=== PATIENT | male | born 1960 | race Caucasian/White ===

== ENCOUNTER 2021-01-04 15:42 | Outpatient (RCR) | payer OTHER, SELFPAY ==
[2021-01-04] MEDS: COVID-19 VACC, MRNA(PFIZER)/PF 30 MCG/0.3 ML SYRINGE IM (08:51)
== END 2021-01-04 23:59 ==
LOC: IMMUN 15:42
PROVIDERS: PCP Family Medicine; Visit Provider Family Medicine
DX: Z23 Encounter for immunization (principal)
CPT/HCPCS: 0001A; 91300

== ENCOUNTER 2024-06-03 08:30 | Outpatient (RCR) | payer OTHER, SELFPAY ==
--- NOTE | 2024-01-19 09:25 | HP.PTEVAL ---
Patient's Visit Information Visit Information Visit Information: NIGHAT SANTOS is a 63 year old M referred to Physical Therapy by Dr. Manuel Bee MD with a diagnosis of R rotator cuff and labral repair 01/05/24. Date of Evaluation: 01/19/24 Physical Therapist: Leo Louis, PT, ATC Visit Plan Frequency: 2-3x /Week Duration: 2-4 Months Plan: R shoulder PROM and mobs x 6 weeks. Progress to AROM after 6 weeks. Begin strengthening at 10-12 weeks consisting of rot cuff strengthening, scap stab ex's, UBE, and HEP Subjective Subjective: DOS: 01/05/24. Pt reports he was attempting to get into his truck when he slipped on ice and fell to the ground, landing on his L side. Pt reports he was holding on to his door with his R shoulder, which resulted in a tear of his rotator cuff, labrum, and biceps tendon. Pt reports he feels a lot better since having the surgery, but is still in a lot of pain today. Pt describes his pain of more like an ache at this time. Pt is R hand dominant. Pt reports he is sleeping okay at this time, but requires pain meds to sleep. Pt reports he has remained braced at most times since his surgery secondary to being in pain. Pt reports he has no HEP at this time. Pt works for a [employer], which requires some heavy lifting at times when he has to lift 40# bags. 3/10 pain while sitting here at rest, 7/10 at worst Pain R shoulder: Pain Intensity (Out of 10): 3 Pain Intensity Range: 7 Objective Objective: Neuro: B UE sensation is WNL to light touch. L biceps reflex= 1/3 ROM: L shoulder AROM flex= 130, abd= 120, ER= 40, IR= WNL; R shoulder PROM flex= 90, abd= 90 degrees MMT: L shoulder flex= 18, abd= 28, ER= 23, IR= 28 #F; R shoulder not tested at this time Observation: Incisions are still healing. No signs of infection. Balance/Special Test Scores Quick DASH Score: 81.8175 Goals Goal 1:: Decrease R shoulder pain x 50% to aid with sleep Goal Time Frame: 6-8 Weeks Goal 2:: Increase R shoulder flex and abd ROM x 30 degrees to aid with overhead activity Goal Time Frame: 6-8 Weeks Goal 3:: Increase R shoulder strength to within 90 percent of L shoulder strength to aid with RTW Goal Time Frame: 8-12 Weeks Goal 4:: I with HEP Goal Time Frame: 4-6 Weeks Rehabilitation Potential Physical Therapy Diagnosis: Pt has R shoulder pain, weakness, and limited ROM secondary to R shoulder surgery Rehabilitation Potential: Good Anticipated Interventions Patient/Client Instruction: Educate patient on: Condition and Plan of Care For the Purpose of:: To improve self management Therapeutic Exercise to Include: Strength training, Flexibilty training, Active ROM and Scapular Strength/Stabilization For the Purpose of:: To decrease pain, To increase ROM and To improve muscle performance and motor function Cryotherapy (ice pack, ice massage): Yes For the Purpose of:: To decrease pain Text: Thank you for the opportunity to evaluate your patient. For Medicare and Medicare HMO plans, please review the plan of care and approve it. It will need to be FAXED BACK to us at [phone] for Medicare purposes. For Medicare only, by signing this I certify the plan of care. Please let me know if there are questions or concerns regarding this plan of care. Physician Signature: Date:
--- NOTE | 2024-04-20 14:25 | HP.PTREVAL_ITS ---
Re-Evaluation Intro: Dr. Manuel Bee MD, It has been my pleasure to treat NIGHAT SANTOS over the last 30 visits for R rotator cuff and labral repair 01/05/24. Please see the progress note below for an update on the physical therapy plan of care! Subjective Subjective: Pt is 15 weeks post op. He has another C-9. He is feeling pretty good. At times it will be randomly sore and not done anything to it. He does sleep on the R side and it does wake him up. He is R handed. Strengthening is going well. He is back to work but he is on light duty. He has to be able to carry 50# to get back to work. Not fully cleared until Jul 07. Objective Objective/Function: R Flexion 125 degrees R ABD 127 R ER 49 Pt is very tight at end range motions, He likes to keep his elbow bent with overhead activities so we worked with a wand today to keep his elbows straight and feel the end range motion stretch in all planes Plan Plan Plan: 2X/ week for 6 additional weeks for AROM/AAROM/PROM to end range to increase end range motion and R scapular and RC strengthening Balance/Gait/Functional tests Balance/Special Test Scores Quick DASH Score: 37.5000 Goals Goals Goal 1:: Decrease R shoulder pain x 50% to aid with sleep Goal Time Frame: 6-8 Weeks Goal Progress: Progressing Goal 2:: Increase R shoulder flex and abd ROM x 30 degrees to aid with overhead activity Goal Time Frame: 6-8 Weeks Goal 3:: Increase R shoulder strength to within 90 percent of L shoulder stre ngth to aid with RTW Goal Time Frame: 8-12 Weeks Goal Progress: Progressing Goal 4:: I with HEP Goal Time Frame: 4-6 Weeks Goal Progress: Progressing Anticipated Interventions Anticipated Interventions Patient/Client Instruction: Educate patient on: Condition and Plan of Care For the Purpose of:: To improve self management Therapeutic Exercise to Include: Strength training, Flexibilty training, Active ROM and Scapular Strength/Stabilization For the Purpose of:: To decrease pain, To increase ROM and To improve muscle performance and motor function Cryotherapy (ice pack, ice massage): Yes For the Purpose of:: To decrease pain Re-Evaluation Ending Re-evaluation ending: Please do not hesitate to contact me at [phone] by phone or if you have questions or concerns regarding this new plan of care! Sincerely, Shellie Dewey, MPT
--- NOTE | 2024-07-12 14:59 | HP.PT.NRP ---
Patient Information Patient Information: NIGHAT SANTOS was seen in my office for initial evaluation on 01/19/24. The following Plan of Care was established for this patient: POC Established Initial Frequency: 2-3x /Week Initial Duration: 2-4 Months Anticipated Interventions Patient/Client Instruction: Educate patient on: Condition and Plan of Care For the Purpose of:: To improve self management Therapeutic Exercise to Include: Strength training, Flexibilty training, Active ROM and Scapular Strength/Stabilization For the Purpose of:: To decrease pain, To increase ROM and To improve muscle performance and motor function Cryotherapy (ice pack, ice massage): Yes For the Purpose of:: To decrease pain Last Seen Last Seen: This patient was last seen in our office . Pertinent comments regarding their Physical therapy will appear below: Pt was treated for 42 PT visits for R shoulder pain through the date of 06/03/24. Pt has not returned through todays date and is discontinued at this time. At this point I will be discontinuing this patient from physical therapy. I would be happy to see this patient again in the future if found appropriate by the physician. Thank you! Leo Louis, PT, ATC Balance/Gait/Functional tests Balance/Special Test Scores Quick DASH Score: 9.0900
== END 2024-06-03 19:00 | disposition home or self-care (01) ==
LOC: PT 08:30
PROVIDERS: PCP Family Medicine; Referring Provider Orthopaedic Surgery Hand Surgery; Visit Provider Orthopaedic Surgery Hand Surgery
DX: S46.011D Strain of muscle(s) and tendon(s) of the rotator cuff of right shoulder, subsequent encounter (principal); S43.431D Superior glenoid labrum lesion of right shoulder, subsequent encounter
CPT/HCPCS: 97110; 97140; 97161; 97530

== ENCOUNTER 2025-09-12 21:18 | Emergency (ER) | payer OTHER, SELFPAY ==
[2025-09-12 21:21] VITALS: BP 145/86; PULSE 88; RESP 14; TEMP 37; O2SAT 97; BMI 31.1
--- NOTE | 2025-09-12 22:09 | EX.ED.DYSGE1 ---
HPI History of Present Illness Chief Complaint: Rash Narrative Narrative: 65-year-old male presents with his because of increased redness to the right side of his abdomen and fever that he has had for the last few days. He relates history that he was treated for shingles starting Thursday of last week. This was approximately 9 days ago. He states he finished his valacyclovir and prednisone, and the area increased in redness overnight. Today he had a fever of 100.8 degrees after taking ibuprofen. States he feels flushed. He is not diabetic and does not take daily medications. He states that the vesicles had healed up well, but there has been increased redness to his right flank. He had not seen his primary care provider but [facility]. He presents because of the increased redness in his right flank. He denies any nausea or vomiting, no exacerbating or alleviating factors. [facility] Medical History [facility] arthritis De Quervain's disease (radial styloid tenosynovitis) Pain of right thumb Home Medications ?Medication ?Instructions ?Recorded ?Last Taken ?Type amoxicillin 875 mg-potassium 1 tab PO BID #20 tabs 09/12/25 Unknown Rx clavulanate 125 mg tablet Allergy/AdvReac Type Severity Reaction Status Date / Time No Known Allergies Allergy Verified 09/12/25 21:25 Family History Father Diabetes Surgical History History of surgical removal of ganglion cyst History of arthroscopy of right knee Social History Smoking Status: Current every day smoker tobacco type: cigars what type of physical activity do you participate in: other details: hunting, training bird dogs ROS ROS ED ROS Narrative Review of systems is positive for increased redness to right flank. Positive fever. No nausea or vomiting. Feeling flushed. Vesicular rash improved. EXAM Physical Exam Narrative Exam Narrative: Afebrile. Vital signs noted. Nontoxic-appearing. Cardiovascular examination reveals regular rate and rhythm. Lungs are clear to auscultation bilaterally. Abdomen is soft and nontender with positive bowel sounds, no guarding or rebound. There is a large erythematous area on the right flank noted. No fluctuance. No crepitance. Abdomen is otherwise soft. Healing vesicular rash, flat, no purulent drainage. Const Vital Signs: 09/12/25 21:21 09/12/25 22:14 09/12/25 22:16 Temperature 98.6 F 98.3 F Temperature Source Oral Oral Pulse Rate 88 75 Respiratory Rate 14 16 Respiratory Effort Normal Non-Labored Respiratory Pattern Normal Blood Pressure 145/86 H 120/64 Blood Pressure Mean 105 82 Pulse Ox 97 97 Oxygen Delivery Method Room Air Room Air 09/12/25 23:00 Temperature 99.4 F H Temperature Source Oral Pulse Rate 70 Respiratory Rate 16 Respiratory Effort Respiratory Pattern Blood Pressure 105/57 L Blood Pressure Mean 73 Pulse Ox 97 Oxygen Delivery Method Room Air MDM MDM MDM Narrative Medical decision making narrative: The differential diagnosis includes but not limited to worsening shingles versus cellulitis versus necrotizing fasciitis. I do not feel that he has neck Fash. I do not feel that he needs CT imaging of his abdomen. There is no crepitance. I do not feel he has a drainable abscess as well. Currently, he is not meeting any SIRS criteria with a normal pulse of 88 and he is afebrile at 98.6. However, sepsis of workup was pursued with blood cultures, CBC, CMP, and lactic acid. He was bolused normal saline 1 L intravenously IV. I think what has happened is that his open lesions of the skin of shingles has turned into a cellulitic process. I reviewed his laboratory work and he has slight increase of his WBC count of 12.1, hemoglobin 15.0, hematocrit 43.7, platelet count 212. Sodium normal at 135 with potassium 4.0, BUN of 22 and creatinine 1.12. Glucose slightly elevated at 136 with a normal anion gap of 12. Lactic acid is normal at 1.1 so I doubt sepsis. LFTs show AST of 44 with ALT normal at 27 and normal alk phos of 82. His blood cultures are currently pending. Upon repeat examination, he states he is feeling mildly improved from when he first arrived. Although he had slight increase in his temperature to 99.4, he remains afebrile. He was started on Unasyn 3 g IV as a starting dose of antibiotics. In discussion with the patient and his , through shared decision making, he would like to be discharged for outpatient trial of antibiotics. I do find this reasonable as he is currently not meeting SIRS criteria. He was given strict return instructions. RN marked cellulitic area with skin marker pen. I reviewed return instructions with the patient and his . He is declining observation at this time. Disposition is discharged home in stable condition. History & Record Review Discussion w/independent historian: Patient and Family () Additional record(s) reviewed:: Prior ED visit (No prior ED visit) Lab Data Attestation: I reviewed the patient's lab results. Labs: Laboratory Results - last 24 hr 09/12/25 22:15 WBC 12.1 H RBC 4.84 Hgb 15.0 Hct 43.7 MCV 90.3 MCH 31.0 MCHC 34.3 RDW Std Deviation 40.7 RDW Coeff of El 12.5 Plt Count 212 MPV 8.9 Immature Gran % (Auto) 1.600 H Neut % (Auto) 71.0 H Lymph % (Auto) 15.7 L [place] % (Auto) 10.3 H Eos % (Auto) 0.7 Baso % (Auto) 0.7 Absolute Neuts (auto) 8.6 H Absolute Lymphs (auto) 1.90 Nucleated RBC % 0 Sodium 135 Potassium 4.0 Chloride 100 Carbon Dioxide 22.4 Anion Gap 12 BUN 22 H Creatinine 1.12 Estim Creat Clear Calc 77.03 Est GFR (MDRD) Non-Af 74 BUN/Creatinine Ratio 20.0 Glucose 136 H Lactic Acid 1.1 Calcium 8.8 Total Bilirubin 0.49 AST 44 H ALT 27 Alkaline Phosphatase 82 Total Protein 6.8 Albumin 3.8 Globulin 3.0 Albumin/Globulin Ratio 1.2 Discharge Plan Triage Chief Complaint: Rash ED Provider: Vasiliy Luther Dx/Rx/DC Orders Clinical Impression: Cellulitis of right abdominal wall, Shingles Instructions: ED Cellulitis Prescriptions: New amoxicillin-pot clavulanate 875-125 mg tablet 1 tab PO BID Qty: 20 0RF Primary Care Provider: Russell Borges Referrals: Russell Borges MD [Primary Care Provider, Family Practice] - 3-5 Days Activity Restrictions/Additional Instructions: Antibiotics as directed. Return with increased redness, sustained high fever, abdominal pain, new or worsening symptoms. Follow-up with your primary care provider within the next few days for a wound check. Return to the emergency department with rapid increase of redness of your abdominal wall in the next 48 hours. Print Language: Dutch Disposition Disposition: Home, Self Care
[2025-09-12 22:14] VITALS: BP 120/64; PULSE 75; RESP 16; TEMP 36.8; O2SAT 97
[2025-09-12] MEDS: 0.9% Normal Saline (1000mL) 1,000 ML 999 ML IV (22:17)
--- OUTSIDE RECORDS SUMMARY | 2025-09-12 22:25 | XMS RPT_ITS | CCD ---
Author Organization [facility] Inform ion Partnership [facility] Care Team Providers Care Line Maintainer Name Role Phone Cecile Borges Primary Care Provider LYNNE SWAN Referring Unavailable CECILE BORGES [facility] Unavail CARROLL Hoffman Attending Unavailable LYNNE SWAN Admitting Unavailable Cecile Borges MD [facility] Provide r LYNNE SWAN Attending Unavailable [facility] Unavail able LYNNE SWAN Admitting Unavailable LYNNE SWAN Referring Unavailable [facility] Unavail able [facility] Unavail able LYNNE SWAN Referring Unavailable LYNNE SWAN Attending Unavailable PINKY MOCTEZUMA Attending Unava ilable JONY [facility] Unavail AL Rojas MD Attending Unavailable Manuel Bee Referring Unavailable Manuel Bee [facility] Medications Completed/Discontinued Medications Medication Drug Class(es) Dates Sig (Normalized) Sig (Original) 1 ml triamcinolone acetonide 40 mg/ml injection (2 sources) Corticosteroid Start: 02-04-2022 End: 02-05-2022 triamcinolone acetonide (KENALOG-40) injection 40 mg Start: 08-15-2020 End: 08-15-2020 triamcinolone acetonide (MICHAEL ALOG-40) injection 40 mg Problems Problem Classification Problem Date Documented Da te Episodic/Chronic Essential hypertension (2 sources) Essential (primary) hypertension; Translations: [Essential (primary) hypertension] Onset: 11-03-2023 Chronic Joint disorders and dislocations; trauma-related (2 sources) Acute tear of medial meniscus of right knee; Translations: [Other tear of medial meniscus, current injury, right knee, initial encounter] Onset: 09-19-2020 Episodic Other non-traumatic joint disorders (2 sources) Pain in left shoulder; Translations: [Pain in left shoulder] Onset: 11-03-2023 Episodic Other non-traumatic joint disorders (2 sources) Pain in right shoulder; Translations: [Pain in right shoulder] Onset: 11-03-2023 Episodic Sprains and strains (4 sources) Unspecified sprain of right shoulder joint, initial encounter; Translations: [Superior glenoid labrum lesion of right shoulder, initial encounter] Onset: 11-11-2023 Episodic Unclassified (6 sources) Acute tear of medial meniscus of right knee; Translations: [Acute medial meniscus tear of right knee, initial encounter] Onset: 09-19-2020 09-19-2020 Results Test Name Value Interpretation Reference Range Facility Re-Evaluation - PT (1)on Re-Evaluation - PT (1) [facility] [address] [place] [address] [address] [place] [address] / REEVALUATION / MEDICARE RECERTIFICATION PHYSICAL THERAPY MR#: [id number] Acct: [id number] Name: MANUEL SANTOS Rep #: [id number] : 1960 63 From: Shellie Dewey MPT Referring Dr.: Dr. Manuel Bee MD Status:REG R Insurance: [facility] SELF PAY INSURANCE Re-Evaluation Intro: Dr. Manuel Bee MD, It has been my pleasure to treat MANUEL SANTOS over the last 30 visits for R rotator cuff and labral repair 01/05/24. Please see the progress note below for an update on the physical therapy plan of care! Subjective Subjective: Pt is 15 weeks post op. He has another C-9. He is feeling pretty good. At times it will be randomly sore and not done anything to it. He does sleep on the R side and it does wake him up. He is R handed. Strengthening is going well. He is back to work but he is on light duty. He has to be able to carry 50# to get back to work. Not fully cleared until Jul 07. Objective Objective/Function: R Flexion 125 degrees R ABD 127 R ER 49 Pt is very tight at end range motions, He likes to keep his elbow bent with overhead activities so we worked with a wand today to keep his elbows straight and feel the end range motion stretch in all planes Plan Plan Plan: 2X/ week for 6 additional weeks for AROM/AAROM/PROM to end range to increase end range motion and R scapular and RC strengthening Balance/Gait/Functiona l tests Balance/Special Test Scores Quick DASH Score: 37.5000 Goals Goals Goal 1:: Decrease R shoulder pain x 50% to aid with sleep Goal Time Frame: 6-8 Weeks Goal Progress: Progressing Goal 2:: Increase R shoulder flex and abd ROM x 30 degrees to aid with overhead activity Goal Time Frame: 6-8 Weeks Goal 3:: Increase R shoulder strength to within 90 percent of L shoulder strength to aid with RTW Goal Time Frame: 8-12 Weeks Goal Progress: Progressing Goal 4:: I with HEP Goal Time Frame: 4-6 Weeks Goal Progress: Progressing Anticipated Interventions Anticipated Interventions Patient/Client Instruction: Educate patient on: Condition and Plan of Care For the Purpose of:: To improve self management Therapeutic Exercise to Include: Strength training, Flexibilty training, Active ROM and Scapular Strength/Stabilization For the Purpose of:: To decrease pain, To increase ROM and To improve muscle performance and motor function Cryotherapy (ice pack, ice massage): Yes For the Purpose of:: To decrease pain Re-Evaluation Ending Re-evaluation ending: Please do not hesitate to contact me at [phone] by phone or if you have questions or concerns regarding this new plan of care! Sincerely, Shellie Dewey, MPT 04/20/24 [id number] CC: Dr. Cecile Borges MD; Dr. Manuel Bee MD Signed For Medicare only, by signing this I certify the plan of care. Physicians Signature Date Normal [facility] Inital Evaluation (1) - PTon 01-19-2024 Inital Evaluation (1) - PT [facility] [address] [place] [address] / REHABILITATION SERVICES INITIAL EVALUATION MR#: [id number] Acct: [id number] Name: MANUEL SANTOS Rep #: [id number] : 1960 63 From: Leo Louis PT, ATC Referring Dr.: Dr. Manuel Bee MD Status: REG RCR Insurance: [facility] SELF PAY INSURANCE Patient's Visit Information Visit Information Visit Information: MANUEL SANTOS is a 63 year old M referred to Physical Therapy by Dr. Manuel Bee MD with a diagnosis of R rotator cuff and labral repair 01/05/24. Date of Evaluation: 01/19/24 Physical Therapist: Leo Louis, PT, ATC Visit Plan Frequency: 2-3x /Week Duration: 2-4 Months Plan: R shoulder PROM and mobs x 6 weeks. Progress to AROM after 6 weeks. Begin strengthening at 10- 12 weeks consisting of rot cuff strengthening, scap stab ex's, UBE, and HEP Subjective Subjective: DOS: 01/05/24. Pt reports he was attempting to get into his truck when he slipped on ice and fell to the ground, landing on his L side. Pt reports he was holding on to his door with his R shoulder, which resulted in a tear of his rotator cuff, labrum, and biceps tendon. Pt reports he feels a lot better since having the surgery, but is still in a lot of pain today. Pt describes his pain of more like an ache at this time. Pt is R hand dominant. Pt reports he is sleeping okay at this time, but requires pain meds to sleep. Pt reports he has remained braced at most times since his surgery secondary to being in pain. Pt reports he has no HEP at this time. 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 3/10 pain while sitting here at rest, 7/10 at worst Pain R shoulder: Pain Intensity (Out of 10): 3 Pain Intensity Range: 7 Objective Objective: Neuro: B UE sensation is WNL to light touch. L biceps reflex= 1/3 ROM: L shoulder AROM flex= 130, abd= 120, ER= 40, IR= WNL; R shoulder PROM flex= 90, abd= 90 degrees MMT: L shoulder flex= 18, abd= 28, ER= 23, IR= 28 #F; R shoulder not tested at this time Observation: Incisions are still healing. No signs of infection. Balance/Special Test Scores Quick DASH Score: 81.8175 Goals Goal 1:: Decrease R shoulder pain x 50% to aid with sleep Goal Time Frame: 6-8 Weeks Goal 2:: Increase R shoulder flex and abd ROM x 30 degrees to aid with overhead activity Goal Time Frame: 6-8 Weeks Goal 3:: Increase R shoulder strength to within 90 percent of L shoulder strength to aid with RTW Goal Time Frame: 8-12 Weeks Goal 4:: I with HEP Goal Time Frame: 4-6 Weeks Rehabilitation Potential Physical Therapy Diagnosis: Pt has R shoulder pain, weakness, and limited ROM secondary to R shoulder surgery Rehabilitation Potential: Good Anticipated Interventions Patient/Client Instruction: Educate patient on: Condition and Plan of Care For the Purpose of:: To improve self management Therapeutic Exercise to Include: Strength training, Flexibilty training, Active ROM and Scapular Strength/Stabilization For the Purpose of:: To decrease pain, To increase ROM and To improve muscle performance and motor function Cryotherapy (ice pack, ice massage): Yes For the Purpose of:: To decrease pain Text: Thank you for the opportunity to evaluate your patient. For Medicare and Medicare HMO plans, please review the plan of care and approve it. It will need to be FAXED BACK to us at [phone] for Medicare purposes. For Medicare only, by signing this I certify the plan of care. Please let me know if there are questions or concerns regarding this plan of care. Physician Signature: Date:__ 01/19/24 0925 CC: Dr. Abel Borges MD; Dr. Manuel Bee MD [facility] Signed Normal [facility] MRI SHOULDER W/O CONTRAST MAUREEN Vaca 11-11-2023 MRI SHOULDER W/O CONTRAST RIGHT ORIGINAL EXAMINATION: MRI OF THE RIGHT SHOULDER WITHOUT CONTRAST11/11/2023 1:26 pm TECHNIQUE: Multiplanar multisequence MRI of the right shoulder was performed without the administration of intravenous contrast. COMPARISON: None HISTORY: ORDERING SYSTEM PROVIDED HISTORY: Reason for Exam: RIGHT SHOULDER SPRAIN Patient fell while holding onto truck door. The anterior and posterior. FINDINGS: MUSCLES AND TENDONS: There is a full-thickness supraspinatus tendon tear with approximately 2 cm of retraction from its insertion. This is superimposed on a background of tendinopathy. Infraspinatus tendinosis noted.. The teres minor tendon is intact. There is likely a small articular sided tear of the subscapularis tendon on a background of tendinopathy. The tendon of the long head of the biceps is intact and is seated within the bicipital groove distally. There is mild supraspinatus muscle atrophy. No mass is evident at the suprascapular notch, spinoglenoid notch, or the quadrilateral space. OSSEOUS STRUCTURES AND JOINTS: Labrum is degenerated and there is irregular undercutting of the superior labrum which extends into the posterosuperior quadrant. There may be some small paralabral cysts. The glenohumeral ligament complexes appear degenerated. There are moderate degenerative changes of the glenohumeral joint. Advanced degenerative changes of the acromioclavicular joint. No significant acromial downsloping. There is a small glenohumeral joint effusion. No fracture or dislocation is evident. Cystic changes are seen at the greater tubercle of the humerus. Red marrow conversion. No visualized marrow replacing osseous lesions. SOFT TISSUES: There is a small volume of fluid within the subacromial subdeltoid bursa as well as the subcoracoid bursa. Associated soft tissues of the shoulder are grossly unremarkable. IMPRESSION: High-grade and retracted supraspinatus tendon tear. The tear extends into the overlap zone with the infraspinatus tendon. 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 Bursitis with a small glenohumeral joint effusion. I have personally reviewed the images of this examination, agree with resident's findings and interpretation. Interpreted by: Felton Shipman MD Preliminary Report By: Cecile Coe Electronically signed By Felton Shipman MD Dictated Date: 11/11/2023 2:21:05 PM Prelim Date: 11/11/2023 3:02:25 PM Sign Date: 11/11/2023 3:02:25 PM Ordering Provider: AL WOODSON [facility] ([place]) XR CHEST PA/APon 11-03-2023 XR CHEST PA/AP EXAMINATION: XR CHEST PA/AP 11/03/2023 7:17 pm HISTORY: ORDERING SYSTEM PROVIDED HISTORY: FALL PAIN, TECHNOLOGIST PROVIDED HISTORY: Injury/Trauma Reason for exam: fall anterior pain worse around clavicles Cancer History: n Surgery, RadiationHistory: n Encounter Type: Initial Mechanism of injury: fall ORDERING SYSTEM PROVIDED DIAGNOSIS CODES: COMPARISON: None. FINDINGS: Heart size is near the upper limit of normal. Hilar and mediastinal contours are normal. There are no focal pulmonary opacities. There is no pleural effusion or pneumothorax. Multilevel spinal degenerative changes are seen. No fracture is evident. IMPRESSION: No acute findings. Workstation ID: [id number] Dictated by: SERNEITY WELSH on ThuNov 03, 2023 7:28:49 PM EST Transcribed by: SERENITY WELSH on ThuNov 03, 2023 7:28:49 PM EST Finalized by: SERENITY WELSH on ThuNov 03, 2023 7:28:49 PM EST [facility] Comment on above: Order Comment: Injur y/Trauma or Illness?:Injury/Trauma How long have you had these symptoms (acute/chronic)?:Acute Reason for exam?:fall anterior pain worse around clavicles History of cancer?:n Surgeries, chemotherapy, or radiation?:n Type of Exam?:Initial Mechanism of injury?:fall XR SHOULDER LEFT 2+ VIEWS (S TANDARD)on 11-03-2023 XR SHOULDER LEFT 2+ VIEWS (STANDARD) EXAMINATION: THREE VIEWS OF THE RIGHT AND 3 VIEWS OF THE LEFT SHOULDER, 11/03/2023 COMPARISON: None. HISTORY: Injury/Trauma or Illness?:Injury/Trauma How long have you had these symptoms (acute/chronic)?:Acute FALL PAIN Injury/Trauma or Illness?:Injury/Trauma How long have you had these symptoms (acute/chronic)?:Acute Reason for exam?:right shoulder pain limited rom History of cancer?:n M25.512 Pain in joint of left shoulder; FALL PAIN Injury/Trauma or Illness?:Injury/Trauma How long have you had these symptoms (acute/chronic)?:Acute Reason for exam?:left shoulder pain limited rom History of cancer?:n M25.512 Pain in joint of left shoulderFALL PAIN FINDINGS: RIGHT SHOULDER FINDINGS: No acute fracture, subluxation or dislocation identified. Mild osteoarthritic changes of the acromioclavicular joint. LEFT SHOULDER FINDINGS: No acute fracture, subluxation or dislocation identified. Mild osteoarthritic changes of the acromioclavicular joint. IMPRESSION: 1. No acute fracture or osseous abnormality identified as described above. If there is persistent clinical concern for the possibility of a subtle or nondisplaced acute fracture, a repeat radiographic may be helpful in one or two week period of time. 2. Mild osteoarthritic changes of the shoulders bilaterally. GJT/mjr Workstation ID: [id number] Dictated by: ALLYSON ROBERTS on ThuNov 03, 2023 7:52:37 PM EST Transcribed by: JAYDE CORTES on ThuNov 03, 2023 8:00:20 PM EST Finalized by: ALLYSON ROBERTS on ThuNov 03, 2023 9:12:34 PM EST [facility] Comment on above: Order Comment: Injur y/Trauma or Illness?:Injury/Trauma How long have you had these symptoms (acute/chronic)?:Acute Reason for exam?:left shoulder pain limited rom History of cancer?:n Surgeries, chemotherapy, or radiation?:n Type of Exam?:Initial Mechanism of injury?:fall XR SHOULDER RIGHT 2+ VIEWS ( STANDARD)on 11-03-2023 XR SHOULDER RIGHT 2+ VIEWS (STANDARD) EXAMINATION: THREE VIEWS OF THE RIGHT AND 3 VIEWS OF THE LEFT SHOULDER, 11/03/2023 COMPARISON: None. HISTORY: Injury/Trauma or Illness?:Injury/Trauma How long have you had these symptoms (acute/chronic)?:Acute FALL PAIN Injury/Trauma or Illness?:Injury/Trauma How long have you had these symptoms (acute/chronic)?:Acute Reason for exam?:right shoulder pain limited rom History of cancer?:n M25.512 Pain in joint of left shoulder; FALL PAIN Injury/Trauma or Illness?:Injury/Trauma How long have you had these symptoms (acute/chronic)?:Acute Reason for exam?:left shoulder pain limited rom History of cancer?:n M25.512 Pain in joint of left shoulderFALL PAIN FINDINGS: RIGHT SHOULDER FINDINGS: No acute fracture, subluxation or dislocation identified. Mild osteoarthritic changes of the acromioclavicular joint. LEFT SHOULDER FINDINGS: No acute fracture, subluxation or dislocation identified. Mild osteoarthritic changes of the acromioclavicular joint. IMPRESSION: 1. No acute fracture or osseous abnormality identified as described above. If there is persistent clinical concern for the possibility of a subtle or nondisplaced acute fracture, a repeat radiographic may be helpful in one or two week period of time. 2. Mild osteoarthritic changes of the shoulders bilaterally. GJT/mjr Workstation ID: [id number] Dictated by: ALLYSON ROBERTS on ThuNov 03, 2023 7:52:37 PM EST Transcribed by: JAYDE CORTES on ThuNov 03, 2023 8:00:20 PM EST Finalized by: ALLYSON ROBERTS on ThuNov 03, 2023 9:12:34 PM EST Normal [facility] Comment on above: Order Comment: Injur y/Trauma or Illness?:Injury/Trauma How long have you had these symptoms (acute/chronic)?:Acute Reason for exam?:right shoulder pain limited rom History of cancer?:n Surgeries, chemotherapy, or radiation?:n Type of Exam?:Initial Mechanism of injury?:fall LG Jt Injection/Arthrocentes is: R kneeon 02-04-2022 Lynne Swan CNP 02/04/2022 10:06 PM LG Jt Injection/Arthrocentes is: R knee Performed by: Lynne Swan CNP Authorized by: Lynne Swan CNP CPT 82093 - Large Joint Arthrocentesis: Consent given by: Patient Time out: Immediately prior to the procedure a time out was called Physician or proceduralist has discussed critical or nonroutine steps, procedure duration and anticipated blood loss: Yes Supporting Documentation: Indications: Pain, joint swelling and diagnostic evaluation Procedure Details: Location: Knee Site: R knee Prep: patient was prepped and draped in usual sterile fashion Needle size: 22 G Approach: Anterolateral Medications: 40 mg triamcinolone acetonide 40 mg/mL Anesthetic used: Lidocaine 1% Anesthetic amount (mL): 2 Patient tolerance: Patient tolerated the procedure well with no immediate complications [facility] XR KNEE RIGHT 4+ VIEWS (SPEC MATTHEW VIEWS IN COMMENTS)on 02-04-2022 XR KNEE RIGHT 4+ VIEWS (SPECIFY VIEWS IN COMMENTS) EXAMINATION: XR KNEE RIGHT 4+ VIEWS (SPECIFY VIEWS IN COMMENTS) 02/04/2022 8:03 am HISTORY: ORDERING SYSTEM PROVIDED HISTORY: Pain, TECHNOLOGIST PROVIDED HISTORY: Illness/Other Reason for exam: right knee pain Cancer History: u Surgery, RadiationHistory: u Encounter Type: Initial Additional signs and symptoms: no ORDERING SYSTEM PROVIDED DIAGNOSIS CODES: R52 Pain COMPARISON: 08/15/2020 IMPRESSION: FINDINGS/ Mild medial compartment joint space narrowing. Small tricompartmental, notch, and tibial spine osteophytes. No joint effusion. Workstation ID: [id number] Dictated by: DAKSHA RAMSEY on ThuFeb 05, 2022 8:17:04 AM EDT Transcribed by: DAKSHA RAMSEY on ThuFeb 05, 2022 8:17:04 AM EDT Finalized by: DAKSHA RAMSEY on ThuFeb 05, 2022 8:17:04 AM EDT Normal [facility] Comment on above: Order Comment: Injur y/Trauma or Illness?:Illness/Other How long have you had these symptoms (acute/chronic)?:Chronic Reason for exam?:right knee pain History of cancer?:u Surgeries, chemotherapy, or radiation?:u Type of Exam?:Initial Additional signs and symptoms?:no MR COMPARISON IMPORTon 08-29 This order has been auto-finalized and does not contain a result. [facility] BN MRI KNEE W/O CONTRASTon 1 10-27-2019 MRI KNEE W/O CONTRAST Patient Name: SANTOS MANUEL STUDY: MRI KNEE W/O CONTRAST; 08/27/2020 3:43 pm INDICATION: TEAR OF MEDIAL MENSICUS CURRENT INJ RIGHT KNEE INT. Right knee pain after hyperextension injury. COMPARISON: None. ACCESSION NUMBER(S): [id number] ORDERING CLINICIAN: LYNNE SWNA TECHNIQUE: Multiplanar and multisequential MR images of the right knee are performed. FINDINGS: There is a moderate to large sized joint effusion. There is ill-defined fluid and edema in Hoffa's fat along its posterior margin. There is a moderate size septated Moreno's cysts. There is some ill-defined fluid extending inferior from the cyst along the superficial margin of the medial gastrocnemius. There is a multilobular and septated collection along the posterior joint capsule at the midline which measures 3.6 cm in craniocaudal diameter and 2.6 x 2.0 cm in transverse and AP diameter. 2 irregular low signal foci are identified internally, each of which measures 15 mm in maximum diameter. These findings are compatible with loose bodies. There is subcortical degenerative signal and cystic changes at the medial tibial epiphysis which is more pronounced posteriorly towards the midline and anteriorly at the peripheral epiphysis. The anterolateral signal changes may be posttraumatic. There is no articular collapse. Minor subcortical degenerative signal is identified within the lateral medial femoral condyles and patella. There are findings of tricompartmental osteoarthritis with diffuse irregular thinning of the articular cartilage which is more pronounced at the upper pole of the patella. There is some amorphous intermediate signal in the lateral meniscus, though no linear meniscal tear or truncation. The medial meniscus is abnormal. There is complex linear signal in the posterior horn which extends to the inferior articular surface. There is amorphous signal and truncation of the anterior free edge. These findings extend into the body of the medial meniscus and also contacts the inferior articular surface. There is minor truncation of the free edge of the anterior body. The anterior horn is intact. There is ill-defined fluid and edema superficial to the medial collateral ligament above and below the joint line. There is no ligament discontinuity or laxity. The anterior and posterior cruciate ligaments, lateral collateral ligament complex, popliteus tendon, extensor complex, and lateral patellar retinaculum are intact. There is mild laxity of the medial patellar retinacula with some attenuation of the medial patellofemoral ligament peripherally. There is no full-thickness discontinuity. IMPRESSION: Tricompartmental osteoarthritis. There is full-thickness loss of the articular cartilage at the upper pole of the patella. Complex linear tearing of the posterior horn and body of the medial meniscus to the inferior articular surface and truncation at the free edge, as detailed above. Grade 1 sprain of the medial collateral ligament. There is grade 1-2 sprain of the medial patellar retinaculum. Subcortical degenerative signal cystic changes in the medial tibial epiphysis. Subcortical edema at the anteromedial tibia could be posttraumatic. There is no articular collapse. Large joint effusion. There is a multi lobular and septated Moreno's cyst. A 3.6 x 2.6 x 2.0 cm multilobular and septated cyst is identified along the posterior joint capsule which contains at least 2 irregular low signal loose bodies. Electronically signed by: CHANO HERNÁNDEZ MD [facility] OR LARGE JOINT ARTHROCEN [facility] 08-15-2020 Lynne Swan CNP 08/15/2020 2:35 PM LG Jt Injection/Arthrocentes is: R knee Performed by: Lynne Swan CNP Authorized by: Lynne Swan CNP CPT 15446 - Large Joint Arthrocentesis: Consent given by: Patient Time out: Immediately prior to the procedure a time out was called Physician or proceduralist has discussed critical or nonroutine steps, procedure duration and anticipated blood loss: Yes Supporting Documentation: Indications: Pain, joint swelling and diagnostic evaluation Procedure Details: Location: Knee Site: R knee Prep: patient was prepped and draped in usual sterile fashion Needle size: 22 G Approach: Anterolateral Medications: 40 mg triamcinolone acetonide 40 mg/mL Anesthetic used: Lidocaine 1% Anesthetic amount (mL): 2 Patient tolerance: Patient tolerated the procedure well with no immediate complications [facility] PROGRESSon 11-28-2019 PROGRESS HNO ID: [id number] Author: Olivia Ernst Service: ? Author Type: Car Wash Manager Type: Progress Notes Filed: 11/28/2019 10:28 AM Note Text: [facility] RECRUITER ACCOUNT MANAGER QUICKNOTE Provider Action/FYI: I called the number listed and they said there's no manuel here. Mailed letter to patient. Patient identified by name and . Olivia Ernst CMA [facility] PROGRESSon 11-21-2019 PROGRESS HNO ID: [id number] Author: Olivia Ernst Service: ? Author Type: Car Wash Manager Type: Progress Notes Filed: 11/28/2019 10:28 AM Note Text: POPULATION HEALTH RECRUITER ACCOUNT MANAGER QUICKNOTE Provider Action/FYI: 1st attempt - Left message for patient to return call #[phone] Patient identified by name and . Olivai Klever GEORGES [facility] CNPTOUTREACHon 11-16-2019 CNPTOUTREACH Patient Outreach (INTMWS) MANUEL SANTOS ([id number]) 1960 M Date Time Provider Department 11/16/19 OLIVIA ERNST ([facility]) DINAMWS During your visit today, we recorded the following information about you: Olivia Ernst CMA 11/28/2019 10:28 AM Signed PHMA TEAMLET DOCUMENTATION Provider Action/FYI: PSR Action/FYI: Last patient activity 01/13/2018 Last PCP visit none in epic. - verify pcp I will call patient to verify PCP/schedule re-establish care appointment (if patient agreeable). Health Maintenance Due: LIPID SCREEN due on 1997 HEPATITIS C SCREENING due on 2006 DIABETES SCREEN due on 2007 COLORECTAL CANCER SCREENING,SEE MODIFIER due on 2012 SHINGRIX VACCINE(1 of 2) due on 2012 PROSTATE CANCER SCREENING DISCUSSION due on 2017 INFLUENZA(1) due on 06/19/2019 Teamlet has identified patient by name and date of . Team: Dr. Tr Alcantara older Alice Baker ? Last Office Visit:Visit date not found ? Next Office Visit: Visit date not found ? Last BP/Labs: Blood Pressure: Last 3 Encounter BP Readings: Date: BP: 04/22/2017 138/88 08/06/2015 142/92 Lipids: No results found for: CHOL No results found for: HDL No results found for: LDL No results found for: TG HGB A1C: No results found for: HBA1C TSH: No results found for: TSH) Care Gap: not seen 3 + years Plan: ? Confirm PCP / Status - unknown ? Type of appointment needed: verify pcp.re-establish care ? Consultation Appointments: n/a Labs, HM and Immunization: Health Maintenance Due: LIPID SCREEN due on 1997 HEPATITIS C SCREENING due on 2006 DIABETES SCREEN due on 2007 COLORECTAL CANCER SCREENING,SEE MODIFIER due on 2012 SHINGRIX VACCINE(1 of 2) due on 2012 PROSTATE CANCER SCREENING DISCUSSION due on 2017 INFLUENZA(1) due on 06/19/2019 GEORGES Juarez CMA 11/28/2019 10:[address] [facility] RECRUITER ACCOUNT MANAGER QUICKNOTE Provider Action/FYI: 1st attempt - Left message for patient to return call #[phone] Patient identified by name and . GEORGES Juarez CMA 11/28/2019 10:[address] [facility] RECRUITER ACCOUNT MANAGER AISHA Provider Action/FYI: I called the number listed and they said there's no manuel here. Mailed letter to patient. Patient identified by name and . Olivia Ernst CMA Allergies As of Date: 11/16/2019 (No Known Allergies) Date Reviewed: 04/22/2017 Reviewed by: Chelsey VincentLinux Devops EngineerRandal Perez - Fully Assessed Reason for Visit: PHMA/Care Gap Outreach [[id number]] Prescriptions as of 11/16/2019 Sig: PROMETHAZINE-DM 6.25 MG-15 MG* Take 5 mL by mouth four times* Problem List As Of Date: 11/16/2019 (None) Letter Text Encounter Status:Closed by OLIVIA ERNST CMA on 11/28/19 [facility] PROGRESSon 11-16-2019 PROGRESS HNO ID: [id number] Author: Olivia Ernst Service: ? Author Type: Car Wash Manager Type: Progress Notes Filed: 11/28/2019 10:28 AM Note Text: PHMA TEAMLET DOCUMENTATION Provider Action/FYI: PSR Action/FYI: Last patient activity 01/13/2018 Last PCP visit none in [place]. - verify pcp I will call patient to verify PCP/schedule re-establish care appointment (if patient agreeable). Health Maintenance Due: LIPID SCREEN due on 1997 HEPATITIS C SCREENING due on 2006 DIABETES SCREEN due on 2007 COLORECTAL CANCER SCREENING,SEE MODIFIER due on 2012 SHINGRIX VACCINE(1 of 2) due on 2012 PROSTATE CANCER SCREENING DISCUSSION due on 2017 INFLUENZA(1) due on 06/19/2019 Teamlet has identified patient by name and date of . Team: Dr. Tr Alcantara older Alice Baker ? Last Office Visit:Visit date not found ? Next Office Visit: Visit date not found ? Last BP/Labs: Blood Pressure: Last 3 Encounter BP Readings: Date: BP: 04/22/2017 138/88 08/06/2015 142/92 Lipids: No results found for: CHOL No results found for: HDL No results found for: LDL No results found for: TG HGB A1C: No results found for: HBA1C TSH: No results found for: TSH) Care Gap: not seen 3 + years Plan: ? Confirm PCP / Status - unknown ? Type of appointment needed: verify pcp.re-establish care ? Consultation Appointments: n/a Labs, HM and Immunization: Health Maintenance Due: LIPID SCREEN due on 1997 HEPATITIS C SCREENING due on 2006 DIABETES SCREEN due on 2007 COLORECTAL CANCER SCREENING,SEE MODIFIER due on 2012 SHINGRIX VACCINE(1 of 2) due on 2012 PROSTATE CANCER SCREENING DISCUSSION due on 2017 INFLUENZA(1) due on 06/19/2019 Olivia Ernst, COVERAGE ANALYST [facility] Vital Signs Date Time Vital Sign Value Performing Clinician Jazmin gonzales 02-04-2022 08:57-0400 Body height 170.2 cm Lynne Swan CNP Work Phone: [facility] 02-04-2022 08:57-0400 Body mass index (BMI) [Ratio] 32.45 kg/m2 Lynne Swan CNP Work Phone: [facility] 02-04-2022 08:57-0400 Body weight 93.98 kg Lynne Swan [employer] Work Phone: [facility] 08-15-2020 08:18-0400 BMI (Body Mass Index) 28.8 kg/m2 Lynne [facility] 08-15-2020 08:18040 [facility] 08:180400 Height 175.3 cm Lynne Carrioncock [facility] Encounters Encounter Date Encounter Type Care Provider Facility Start: 06-03-2024 End: 06-03-2024 ambulatory Manuel Bee Facility:[facility] Start: 11-11-2023 End: 11-12-2023 ambulatory AL WOODSON MD Facility:B Start: 11-11-2023 End: 11-11-2023 Patient encounter procedure AL WOODSON MD [facility] Start: 11-03-2023 End: 11-03-2023 Emergency department patient visit PINKY GOETZ [facility] Start: 02-04-2022 End: 02-08-2022 ambulatory LYNNE STEEL [facility] Start: 02-04-2022 End: 02-04-2022 Patient encounter procedure Lynne Swan [facility] Work Phone: [facility] Comment on above: Acute medial meniscu s tear of right knee, initial encounter (Primary Dx) Start: 01-04-2021 End: 01-04-2021 Discharged Recurring [facility]-Immunizations Start: 12-26-2020 End: 12-26-2020 Orders Only Eva Kate Anglin Work Phone: [facility] Start: 09-19-2020 End: 09-23-2020 Patient encounter procedure LYNNE STEEL [facility] Start: 09-19-2020 End: 09-19-2020 Patient encounter procedure Lynne Swan Work Phone: [facility] Comment on above: Acute medial meniscu s tear of right knee, initial encounter; Acute medial meniscus tear of right knee, subsequent encounter Start: 08-29-2020 End: 08-30-[facility] Start: 08-29-2020 End: 08-29-2020 Subsequent hospital visit by physician Lynne Swan Work Phone: [facility] Comment on above: Arrived Start: 08-29-2020 End: 08-29-2020 Office outpatient visit 10 minutes Lynne Swan Work Phone: [facility] Comment on above: Acute medial meniscu s tear of right knee, initial encounter (Primary Dx) Start: 08-15-2020 End: 08-15-2020 Office outpatient new 45 minutes Lynne Swan Work Phone: [facility] Comment on above: Acute medial meniscu s tear of right knee, initial encounter (Primary Dx) Procedures Date Procedure Procedure Detail Performing Clinician Start: 02-04-2022 Arthrocentesis aspir &/inj major jt/bursa w/o us Lynne Swan CNP Work Phone: Start: 08-29-2020 Magnetic resonance imaging Lynne Swan Work Phone: Start: 08-15-2020 Arthrocentesis Lynne Swan Work Phone: Plan of Treatment Date Care Activity Detail Author Start: 04-22-2027 Tetanus vaccination Tetanus: Every 10yrs [facility] Start: 06-19-2022 Influenza vaccination Sequential Influenza Vaccine (Season Ended) [facility] Start: 01-25-2021 COVID-19 Vaccine (2 - Pfizer 3-dose series) COVID-19 Vaccine (2 - Pfizer 3-dose series) [facility] Start: 10-03-2020 End: 10-03-2020 Treatment 10/03/2020 Treatment Rehabilitation Lynne Swan, [employer] [address] [facility] [place] [address] [phone] Justin Hatch PT [facility] Start: 06-19-2020 Influenza vaccination given Sequential Influenza Vaccine (#1) [facility] Start: 2012 Administration of herpes zoster vaccine Zoster Vaccines (1 of 2) [facility] Start: 2012 Screening for malignant neoplasm of colon [facility] Start: 1980 Hepatitis C antibody, confirmatory test Hepatitis C Screening [facility] Start: 1980 Hepatitis C screening Hepatitis C Screening [facility] Start: 1978 COVID-19 Vaccine (1 of 2) COVID-19 Vaccine (1 of 2) [facility] Start: 1977 HIV screening HIV Screening [facility] Start: 1974 Adolescent depression screening assessment Depression Screening (PHQ9) [facility] Start: 1974 Depression screening using PHQ-9 (Patient Health Questionnaire 9) score Depression Screening (PHQ-2/9) [facility] Start: 1968 Pneumococcal Vaccine: Ped or At-Risk (1 - PCV) Pneumococcal Vaccine: Ped or At-Risk (1 - PCV) [facility] Start: 1965 History and physical examination, annual for health maintenance Wellness Visit [facility] Start: 1962 Prostate specific antigen measurement PSA Level [facility] Start: 1962 Tetanus vaccination Tetanus: Every 10yrs [facility] Immunizations Immunization Date Immunization Notes Care Provider Fa tamia 01-04-2021 Covid (Pfizer) [facility] Work Phone: Payers Date Payer Category Payer Self-pay [id number] 2024 Unknown [id number] 2023 Worker's Compensation [id number] 2019 Unknown [id number] 2000 Unknown [id number] 1960 Unknown [id number] 1960 Unknown [id number] 1960 Unknown [id number] 1960 Unknown [id number] 1960 Unknown [id number] 1960 Unknown [id number] Unknown [employer] [facility] [id number] Effective for all dates [id number] Unknown [facility] [employer] [facility] [id number] Unknown [facility] [employer] CN [id number] Unknown [id number] Unknown [id number] Social History Date Type Detail Facility Start: 08-15-2020 End: 08-30-2020 Tobacco smoking status VAIS Current every day smoker [facility] Start: 08-15-2020 End: 08-30-2020 Tobacco use and exposure Never used [facility] Start: 08-15-2020 End: 08-30-2020 Alcohol intake Ex-drinker (finding) [facility] Start: 1960 Sex Assigned At Not on file [facility] Start: 01-25-2022 End: 02-04-2022 Exposure to SARS-CoV-2 (event) Not sure [facility] Start: 1960 Sex Assigned At Male A [facility] Start: 02-04-2022 Alcohol intake Current drinke r of alcohol (finding) [facility] Start: 08-29-2020 History SDOH Alcohol Frequency 99 [facility] Start: 02-04-2022 History SDOH Alcohol Comment rare [facility] Tobacco smoking status No Smokin g Status Entered [facility] Goals Date Patient Goal Desired Activity /State Clinical Note 11-11-2023 Note Date & Type Note Facility 11-11-2023 Note ORIGINAL EXAMINATION: MRI OF THE RIGHT SHOULDER WITHOUT CONTRAST11/11/2023 1:26 pm TECHNIQUE: Multiplanar multisequence MRI of the right shoulder was performed without the administration of intravenous contrast. COMPARISON: None HISTORY: ORDERING SYSTEM PROVIDED HISTORY: Reason for Exam: RIGHT SHOULDER SPRAIN Patient fell while holding onto truck door. The anterior and posterior. FINDINGS: MUSCLES AND TENDONS: There is a full-thickness supraspinatus tendon tear with approximately 2 cm of retraction from its insertion. This is superimposed on a background of tendinopathy. Infraspinatus tendinosis noted.. The teres minor tendon is intact. There is likely a small articular sided tear of the subscapularis tendon on a background of tendinopathy. The tendon of the long head of the biceps is intact and is seated within the bicipital groove distally. There is mild supraspinatus muscle atrophy. No mass is evident at the suprascapular notch, spinoglenoid notch, or the quadrilateral space. OSSEOUS STRUCTURES AND JOINTS: Labrum is degenerated and there is irregular undercutting of the superior labrum which extends into the posterosuperior quadrant. There may be some small paralabral cysts. The glenohumeral ligament complexes appear degenerated. There are moderate degenerative changes of the glenohumeral joint. Advanced degenerative changes of the acromioclavicular joint. No significant acromial downsloping. There is a small glenohumeral joint effusion. No fracture or dislocation is evident. Cystic changes are seen at the greater tubercle of the humerus. Red marrow conversion. No visualized marrow replacing osseous lesions. SOFT TISSUES: There is a small volume of fluid within the subacromial subdeltoid bursa as well as the subcoracoid bursa. Associated soft tissues of the shoulder are grossly unremarkable. IMPRESSION: High-grade and retracted supraspinatus tendon tear. The tear extends into the overlap zone with the infraspinatus tendon. 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 Bursitis with a small glenohumeral joint effusion. I have personally reviewed the images of this examination, agree with resident's findings and interpretation. Interpreted by: Felton Shipman MD Preliminary Report By: Cecile Coe Electronically signed By Felton Shipman MD Dictated Date: 11/11/2023 2:21:05 PM Prelim Date: 11/11/2023 3:02:25 PM Sign Date: 11/11/2023 3:02:25 PM Ordering Provider: [facility] History of Present illness Narrative 02-04-2022 Lynne Swan CNP - 02/04/2022 10:05 PM EDTCnicola Swan CNP - 02/04/2022 9:00 AM EDT Note Date & Type Note Facility 02-04-2022 History of Presen t illness Narrative Associated Order(s): LG Jt Injection/Arthrocentesis: R knee Post-Procedure Diagnose(s): Acute medial meniscus tear of right knee, initial encounter LG Jt Injection/Arthrocentesis: R knee Performed by: Lynne Swan CNP Authorized by: Lynne Swan CNP CPT 20912 - Large Joint Arthrocentesis: Consent given by: Patient Time out: Immediately prior to the procedure a time out was called Physician or proceduralist has discussed critical or nonroutine steps, procedure duration and anticipated blood loss: Yes Supporting Documentation: Indications: Pain, joint swelling and diagnostic evaluation Procedure Details: Location: Knee Site: R knee Prep: patient was prepped and draped in usual sterile fashion Needle size: 22 G Approach: Anterolateral Medications: 40 mg triamcinolone acetonide 40 mg/mL Anesthetic used: Lidocaine 1% Anesthetic amount (mL): 2 Patient tolerance: Patient tolerated the procedure well with no immediate complications 02/04/22 Manuel Santos 1960 No chief complaint on file. HISTORY of Present Illness: Manuel Santos is a 61 y.o. year old male that presents today with No chief complaint on file. . Manuel Santos has had injections in the past. Last injection to right/left knee was 08/29/2020 and they tolerated well. They have been treated w/ oral medications & injections. Patient denies new injury to the knees. The following portions of the patient's history were reviewed and updated as appropriate: allergies, current medications, past surgical history and problem list Assessment No documentation. PAST MEDICAL HISTORY The patient's Medications, Allergies, Past Surgical History, Medical History, Family History and Social History were reviewed and can be found in their online medical record, and I have reviewed this information with Manuel Santos at the time of their visit. They are significant for No past medical history on file. IMAGING Notes: R Knee: No acute fracture or dislocation. There is tricompartmental joint space narrowing, most significant in the patellofemoral joint space. IMPRESSION And PLAN: Cortisone injection today. Will follow up in 3 months if effective. Call if no improvement in 10 days. No diagnosis found. yLnne Swan CNP documented in this encounter [facility] Evaluation + Plan note Note Date & Type Note Facility Evaluation + Plan note No data available for this section [facility] Evaluation note Note Date & Type Note Facility Evaluation note No Assessments Information Avail [facility] Work Phone: Evaluation note Note Date & Type Note Facility Evaluation note Diagnosis Acute medial meniscus tear of right knee, initial encounter- Primary documented in this encounter [facility] Discharge instructions Note Date & Type Note Facility Hospital Discharge instructions No data available for this section [facility] Progress note Note Date & Type Note Facility Progress note No data available for this section [facility] Summary Purpose Family History No Family History Records FoundNo Family History Records FoundNo Family History Records FoundNo Family History Records FoundNo Family History Records FoundNo Family History Records Found No data available for this section No Family History Records FoundNo Family History Records Found Advance Directives No Advanced Directives Records FoundDocuments on File Type Date Recorded 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 Bag 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 Expl 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 Advance Directives and Living Will Documents on File Type Date Recorded Patient Bag Sealer Expl anation Advance Directives and Living Will Documents on File Type Date Recorded Patient Bag Sealer Expl anation Advance Directives and Livin g Will 09/19/2020 1:54 PM History of Present Illness * Lynne Swan CNP - 08/15/2020 2:32 PM EDT Associated Order(s): LG Jt Injection/Arthrocentesis: R knee Post-Procedure Diagnose(s): Acute medial meniscus tear of right knee, initial encounter LG Jt Injection/Arthrocentesis: R knee Performed by: Lynne Swan CNP Authorized by: Lynne Swan CNP CPT 32004 - Large Joint Arthrocentesis: Consent given by: Patient Time out: Immediately prior to the procedure a time out was called Physician or proceduralist has discussed critical or nonroutine steps, procedure duration and anticipated blood loss: Yes Supporting Documentation: Indications: Pain, joint swelling and diagnostic evaluation Procedure Details: Location: Knee Site: R knee Prep: patient was prepped and draped in usual sterile fashion Needle size: 22 G Approach: Anterolateral Medications: 40 mg triamcinolone acetonide 40 mg/mL Anesthetic used: Lidocaine 1% Anesthetic amount (mL): 2 Patient tolerance: Patient tolerated the procedure well with no immediate complications * Lynne Swan CNP - 08/15/2020 2:24 PM EDT Manuel Santos 1960 CC: 60 y.o. is a he with right knee pain. Chief Complaint Patient presents with Right Knee - Pain . HPI: Knee Pain: Manuel presents to the office today with right knee pain. 3 weeks ago he was bailinghay and slipped, hyperextending his knee and twisting it. He didn't have immediate swelling but he did have pain. Over the course of the next couple of days, the knee seemed to be getting better but then became swollen and painful. He complains of it giving out on him. He has tried Tylenol and Advil but neither of those touched the pain. He is able to go up and down stairs without much difficultyalthough he is very cautious when he has too. He does everything in his power to avoid any twistingmotion of the knee. PMH: No Known Allergies No current outpatient medications on file. No past medical history on file. Past Surgical History: Procedure Laterality Date KNEE SURGERY Right cyst removal Social History Socioeconomic History Marital status: Spouse name: Not on file Number of children: Not on file Years of education: Not on file Highest education level: Not on file Occupational History Not on file Social Needs Financial resource strain: Not on file Food insecurity Worry: Not on file Inability: Not on file Transportation needs Medical: Not on file Non-medical: Not on file Tobacco Use Smoking status: Current Every Day Smoker Smokeless tobacco: Never Used Substance and Sexual Activity Alcohol use: Not Currently Drug use: Not on file Sexual activity: Not on file Lifestyle Physical activity Days per week: Not on file Minutes per session: Not on file Stress: Not on file Relationships Social connections Talks on phone: Not on file Gets together: Not on file Attends denominational service: Not on file Active member of club or organization: Not on file Attends meetings of clubs or organizations: Not on file Relationship status: Not on file Other Topics Concern Not on file Social History Narrative Not on file The patient's past medical history, surgical history, social history, family history, medications and allergies were reviewed with the patient today and are available in the chart for further review. ROS: Review of Systems Constitutional: Negative for activity change and fatigue. HENT: Negative for congestion, hearing loss and trouble swallowing. Eyes: Negative for visual disturbance. Respiratory: Negative for chest tightness and shortness of breath. Cardiovascular: Negative for chest pain and palpitations. Gastrointestinal: Negative for abdominal pain, diarrhea, nausea and vomiting. Endocrine: Negative for polydipsia, polyphagia and polyuria. Genitourinary: Negative for decreased urine volume, difficulty urinating and hematuria. Musculoskeletal: Positive for arthralgias and joint swelling. Negative for myalgias. Skin: Negative for color change, rash and wound. Allergic/Immunologic: Negative for immunocompromised state. Neurological: Negative for dizziness, weakness, light-headedness and numbness. Hematological: Does not bruise/bleed easily. Psychiatric/Behavioral: Negative for confusion and sleep disturbance. The patient is not nervous/anxious. PE: Physical Exam Constitutional: He is oriented to person, place, and time. He appears well- developed and well-nourished. HENT: Head: Normocephalic. Eyes: Pupils are equal, round, and reactive to light. Neck: Normal range of motion. Neck supple. Cardiovascular: Normal rate and regular rhythm. Pulmonary/Chest: Effort normal and breath sounds normal. Abdominal: Soft. Bowel sounds are normal. Musculoskeletal: General: Tenderness and edema present. Right knee: He exhibits decreased range of motion, swelling, effusion and erythema. Tenderness found. Medial joint line and lateral joint line tenderness noted. Neurological: He is alert and oriented to person, place, and time. Skin: Skin is warm and dry. ORTHO: Right Knee Exam Tenderness The patient is experiencing tenderness in the medial joint line, lateral joint line and lateral retinaculum. Range of Motion Extension: abnormal Flexion: abnormal Tests Carolyn: Medial - positive Lateral - positive Valgus: negative Selwyn: Anterior - trace Drawer: Anterior - negative Posterior - negative Other Erythema: absent Scars: present Sensation: normal Pulse: present Swelling: moderate Effusion: effusion present Imaging: R Knee No acute fracture or dislocation. There is mild narrowing in the joint spaces, small effusion. Assessment/Plan: After examination and reviewing of the patient x-ray images, I offered him a cortisone injection which he gladly accepted for pain and inflammation. I did this without complications and he tolerated this well. I am going to order a MRI for further diagnostic evaluation. I placed him in a brace for swelling and additional support. I will see him back for his results. The patient verbalizes understanding and is in agreement with the treatment plan. Diagnosis: Problem List Items Addressed This Visit None Follow Up: No follow-ups on file. Lynne Swan CNP documented in this encounter* Lynne Swan CNP - 08/29/2020 9:46 AM EST [facility] [address] [facility] [address] [facility] [id number] Chief Complaint Patient presents with Results MRI follow up Manuel Santos returns to the office today for follow up of the right knee and for MRI results. The patient states that the swelling has improved since the injection on 08/15. He still has some pain and pressure in the back of his knee but overall it has improved. He denies any new injury to the knee. He has been wearing the brace while working but finds that it will irritate the knee after extended periods of use. The patient's past medical history, surgical history, social history, family history, medications and allergies were reviewed with the patient today and are available in the chart for further review. No Known Allergies No current outpatient medications on file. History reviewed. No pertinent past medical history. Past Surgical History: Procedure Laterality Date KNEE SURGERY Right cyst removal Social History Socioeconomic History Marital status: Spouse name: Not on file Number of children: Not on file Years of education: Not on file Highest education level: Not on file Occupational History Not on file Social Needs Financial resource strain: Not on file Food insecurity Worry: Not on file Inability: Not on file Transportation needs Medical: Not on file Non-medical: Not on file Tobacco Use Smoking status: Current Every Day Smoker Smokeless tobacco: Never Used Substance and Sexual Activity Alcohol use: Not Currently Drug use: Not on file Sexual activity: Not on file Lifestyle Physical activity Days per week: Not on file Minutes per session: Not on file Stress: Not on file Relationships Social connections Talks on phone: Not on file Gets together: Not on file Attends denominational service: Not on file Active member of club or organization: Not on file Attends meetings of clubs or organizations: Not on file Relationship status: Not on file Other Topics Concern Not on file Social History Narrative Not on file ROS: Review of Systems Constitutional: Negative for activity change and fatigue. HENT: Negative for congestion, hearing loss and trouble swallowing. Eyes: Negative for visual disturbance. Respiratory: Negative for chest tightness and shortness of breath. Cardiovascular: Negative for chest pain and palpitations. Gastrointestinal: Negative for abdominal pain, diarrhea, nausea and vomiting. Endocrine: Negative for polydipsia, polyphagia and polyuria. Genitourinary: Negative for decreased urine volume, difficulty urinating and hematuria. Musculoskeletal: Positive for arthralgias. Negative for joint swelling and myalgias. Skin: Negative for color change, rash and wound. Allergic/Immunologic: Negative for immunocompromised state. Neurological: Negative for dizziness, weakness, light-headedness and numbness. Hematological: Does not bruise/bleed easily. Psychiatric/Behavioral: Negative for confusion and sleep disturbance. The patient is not nervous/anxious. PE: Physical Exam Constitutional: He is oriented to person, place, and time. He appears well- developed and well-nourished. HENT: Head: Normocephalic. Eyes: Pupils are equal, round, and reactive to light. Neck: Normal range of motion. Neck supple. Cardiovascular: Normal rate and regular rhythm. Pulmonary/Chest: Effort normal and breath sounds normal. Abdominal: Soft. Bowel sounds are normal. Musculoskeletal: Right knee: He exhibits decreased range of motion and swelling. Tenderness found. Medial joint lineand lateral joint line tenderness noted. Neurological: He is alert and oriented to person, place, and time. Skin: Skin is warm and dry. Imaging: MRI R Knee Tricompartmental arthritis, full thickness loss of the articular cartilage at the upper pole of thepatella. Complex linear tearing of the posterior horn and body of the medial meniscus to the inferior articular surface and truncation at the free edge. Grade 1 MCL sprain Subcortical degenerative signal cystic changes in the medial tibial epiphysis. Large joint effusion, 2 irregular low signal loose bodies. Assessment/Plan: After exam and reviewing of the patient MRI images, I am going to start him in physical therapy. The patient, if no significant improvement after therapy, would like to move forward with a knee scope with menisectomy with Dr. Price. The office will contact him to schedule the surgery. I am happy to see him back as needed. documented in this encounter* Carroll Page, PT - 09/19/2020 1:45 PM EST [facility] Evaluation Today's Date 09/19/2020 Patient Name: Manuel Santos Date of : 1960 Case Name: No linked episodes Functional Diagnosis: 1. Acute medial meniscus tear of right knee, initial encounter Clinical Information: Subjective History of Present Illness Date of Onset: 6 weeks. Chief Complaint/ Mechanism of Injury: Patient reports getting down off of hay bails and hyperextended the knee with pain. Swelling began later that night and last for several days. MRI demonstrates meniscal tear along with MCL Grade 1 tear. Patient reports improved pain and less buckling while wearing hinged knee brace but reports increased stiffness after wearing. Previous Treatment for this condition: Injections Previous Imaging: MRI and X-ray Status: improving Hand dominance: right Pain Scale: Average Pain: 3/10 Pain at highest: 7/10 Functional Status Functional Limitations: limited mobility Premorbid Functional Level: Patient reported Current Functional Level: see outcome tool Daily activity scale: active Prior level of function: active Red Flags: None Barriers to Care: None Fall risk screening Fallen 2 or more times in the last 12 months: No Injured as a result of a fall in the last 12 months: No Personal Goals: Patient seeks to decrease pain and improve ability to complete work tasks without compnesations. Home medical equipment owned: No Knee Right Knee Tenderness: medial joint line Range of Motion: Flexion Right knee active flexion: 3-115 degrees. Muscle Strength: Flexion: 4+ Extension: 4+ Quad Set: good Special Tests Carolyn (Medial): Positive Carolyn (Lateral): Negative Stress Test (Varus): Negative Stress Test (Valgus): Positive Selwyn: Negative Posterior Drawer: Negative Patellar Femoral Grind: Negative Left Knee Left Knee WFL Muscle Strength WFL Treatments: Physical Therapy Exercise Log - 09/19/20 1408 OTHER Precautions/Contraindications Right knee pain Therapeutic Exercise (44445) Intervention Quad sets with bolster 5 secs x 10 reps Parameters Heel Slides 20 x Intervention SLR Flexion 20 x Parameters Sidelying bent knee abduction 20 x Treatment Plan: Frequency of Visits: twice per week Duration: 6 weeks Interventions: Therapeutic Exercise, Neuromuscular Re-Education, Manual Therapy, Gait Training and Vasopneumatic Rehab Potential: good Goals: Physical Therapy Ortho Goals: MOBILITY: Patient will be able to ambulate for 1 hour in community without difficulty in 6 weeks without brace on. MOBILITY: Patient will be able to ambulate on uneven surfaces without difficulty in 6 weeks. MOBILITY: Patient will be able to ascend/descend stairs without difficulty in 6 weeks. MOBILITY: Patient will be able to squat to pick items off floor without pain in 6 weeks. IMPAIRMENT: Improve AROM of Right Knee Extension from -3 degrees to 0 degrees in 2 weeks. OTHER: Patient will be able to properly demonstrate independence with HEP in 2 weeks. Patient Education provided: HEP, POC and prognosis. Clinical Impression: CPT Code 39714 Low 55783 Moderate 05311 High History 0 1-2 3+ Comorbidities: OA, Personal factors: age and chronicity or severity of the current condition x Examination of body systems (elements of body structures & functions, activity limitations, and/or participation restrictions) 1-2 elements 3+ elements 4+ elements See below clinical impression x Clinical Presentation Stable Evolving Unstable As evidenced by reproduction of or changes in symptoms with certain movements x Decision Making Low (FOTO >/= 69) Moderate (FOTO 34 - 68) High (FOTO </= 33) FOTO score= 44 x Pt is a 60 y.o. male who presents to PT services with c/o right knee pain with bending and ambulation. Upon assessment, pt has been found with the following impairments: decreased ROM, decreased strength and antalgic gait. 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 The pt would benefit from skilled PT servicesfocused on the above listed impairments and limitations in order to safely progress pt to their desired level of function. Pt to be discharged from OP PT services if/when goals are met, if they fail to make progress with conservative management in PT, if their level of progress plateaus, or if they do not maintain compliance with attendance or HEP. At this time, it is my clinical judgment that services are medically necessary. Carroll Page, PT [place], [id number] documented in this encounter Assessments Diagnosis Acute medial meniscus tear of right knee, initial encounter- Primary Diagnosis Acute medial meniscus tear of right knee, initial encounter- Primary Diagnosis Acute medial meniscus tear of right knee, initial encounter Acute medial meniscus tear of right knee, subsequent encounter Reason for Referral Status Reason Specialty Diagnoses / Procedures Referred By Contact Referred To Contact Authorized Rehabilitation Diagnoses Acute medial meniscus tear of right knee, initial encounter Lynne Swan, [facility] [address] [place] [address] [facility] [place] [address] [facility] [place] [address] Chief Complaint and Reason for Visit Chief Complaint PFIZER VACCINE Additional Source Comments (unrecognized sect ion and content) No Status Records FoundNo Status Records FoundNo Status Records FoundNo Status Records FoundNo Status Records FoundNo Status Records FoundNo Status Records FoundNo Status Records Found INFORMATION SOURCE (unrecogn ized section and content) DATE CREATED AUTHOR 11/28/2019 [facility] DATE CREATED AUTHOR AUTHOR'S ORGANIZ ATION 09/01/2020 [facility] DATE CREATED AUTHOR AUTHOR'S ORGANIZ ATION 09/23/2020 [facility] DATE CREATED AUTHOR AUTHOR'S ORGANIZ ATION 02/10/2022 [facility] DATE CREATED AUTHOR AUTHOR'S ORGANIZ ATION 03/08/2022 [facility] DATE CREATED AUTHOR AUTHOR'S ORGANIZ ATION 11/09/2023 [facility] DATE CREATED AUTHOR AUTHOR'S ORGANIZ ATION 11/12/2023 [facility] DATE CREATED AUTHOR AUTHOR'S ORGANIZ ATION 07/15/2024 [facility] Reason for Visit (unrecogniz ed section and content) Reason Comments Pain Reason Comments Results MRI follow up Reason Comments Physical Therapy Status Reason Specialty Diagnoses / Procedures Referred By Contact Referred To Contact Authorized Rehabilitation Diagnoses Acute medial meniscus tear of right knee, initial encounter Lynne Swan, [facility] [address] [place] [address] [facility] [place] [address] [facility] [place] [address] Care Teams (unrecognized sec tion and content) Line Maintainer Relationship Specialty Start Date End Date Cecile Borges MD [address] [facility] [address] [place] [address] PCP - General Family Medicine 08/15/20 FOR RECORDS PERTAINING TO PATIENTS WHO ARE OR HAVE BEEN ENROLLED IN A CHEMICAL DEPENDENCY/SUBSTANCEABUSE PROGRAM, SOME INFORMATION MAY BE OMITTED. This clinical summary was aggregated from multiple sources. Caution should be exercised in using it in the provision of clinical care. This summary normalizes information from multiple sources, and as a consequence, information in this document may materially change the coding, format and clinical context of patient data. In addition, data may be omitted in some cases. CLINICAL DECISIONS SHOULD BE BASED ON THE PRIMARY CLINICAL RECORDS. [facility]. provides no warranty or guarantee of the accuracy or completeness of information in this document.
[2025-09-12 22:34] LABS: Hematocrit 43.7 % (40-54); Hemoglobin 15.0 g/dL (13.0-16.5); Immature Granulocytes Count 0.200 X10^3/uL (0.0-0.0); Mean Corp Hgb Conc 34.3 g/dL (32-36); Mean Corpuscular Volume 90.3 fL (80-94); Mean Platelet Vol. 8.9 fl (6.2-12.0); NRBC Flagged by Analyzer 0 % (0-5); Platelet Count 212 K/mm3 (150-450); RBC Distribution Width CV 12.5 % (11.6-14.6); RBC Distribution Width SD 40.7 fl (35.1-43.9); Red Blood Count 4.84 M/mm3 (4.6-6.2); White Blood Count 12.1 K/mm3 (4.4-11.0)
[2025-09-12] MEDS: Ampicillin/Sulbactam 3 GM in 0.9% Normal Saline (100mL MB+) 100 ML IV (22:52)
[2025-09-12 23:00] VITALS: BP 105/57; PULSE 70; RESP 16; TEMP 37.4; O2SAT 97
[2025-09-12 23:14] LABS: AST(SGOT) 44 U/L (<=37); Alanine Aminotransfer ALT/SGPT 27 U/L (<=46); Albumin, Serum 3.8 g/dL (3.4-4.8); Alkaline Phosphatase 82 U/L (40-129); Anion Gap 12 (5-15); BUN 22 mg/dL (4-19); BUN/Creat Ratio 20.0 RATIO (10-20); Calcium,Total 8.8 mg/dL (7.6-11.0); Carbon Dioxide 22.4 mmol/L (21.0-32.0); Chloride 100 mmol/L (98-108); Estimated Creatinine Clearance 77.03 ml/min (50-250); Globulin 3.0 g/dL (2.2-4.2); Glucose 136 mg/dL (70-99); Potassium 4.0 mmol/L (3.3-5.1)
[2025-09-12 23:40] VITALS: BP 112/61; PULSE 68; RESP 18; TEMP 37.3; O2SAT 96
== END 2025-09-12 23:57 | disposition home or self-care (01) ==
PROVIDERS: Emergency Provider Emergency Medicine; PCP Family Medicine; Visit Provider Emergency Medicine
DX: L03.311 Cellulitis of abdominal wall (principal); B02.9 Zoster without complications; F17.290 Nicotine dependence, other tobacco product, uncomplicated
CPT/HCPCS: 80053; 83605; 85025; 87040; 96365; 99285; A4216; J0295